=== PATIENT | female | born 1975 | race Caucasian/White ===

== ENCOUNTER 2018-10-17 15:01 | Emergency (ER) | payer BC, SELFPAY ==
[2018-10-17 15:00] VITALS: BP 130/59; PULSE 89
[2018-10-17 15:03] VITALS: BP 130/59; PULSE 89; RESP 12; TEMP 37.2; O2SAT 100
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
[2018-10-17] MEDS: Normal Saline Flush 10 ML SYR IVP ×2 (15:45→17:48)
[2018-10-17] MEDS: Normal Saline 1,000 ML 150 ML IV (15:45)
[2018-10-17 15:57] LABS: Abs Immature Grans 0.02 k/cumm (0.0-0.09); Absolute Basophil Count 0.04 k/cumm (0.0-0.2); Absolute Eosinophil Count 0.36 k/cumm (0.0-0.7); Absolute Lymphocyte Count 1.49 k/cumm (1.2-3.4); Absolute Monocyte Count 0.49 k/cumm (0.11-0.7); Absolute Neutrophil Count 8.12 k/cumm (1.2-6.7); Basophils % 0.4; Eosinophils % 3.4; HGB 13.2 g/dL (12.0-15.5); Immature Grans % 0.2; Lymphocytes % 14.2; Mean Corpuscular Hemoglobin 29.3 pg (27.0-33.0); Mean Corpuscular Volume 88.7 fL (80-95); Mean Platelet Volume 9.2 fL (8.0-11.0); Monocytes % 4.7; Neutrophils % 77.1; Platelet Count 242 x1000/uL (130-400); RBC 4.51 m/cumm (4.00-5.20); RBC Distribution Width 12.9 % (11.7-14.6); White Blood Cell Count 10.52 k/cumm (4.4-10.8)
[2018-10-17] MEDS: Acetaminophen 500 MG TAB (16:10)
[2018-10-17 16:11] LABS: ALT 29 U/L (12-78); AST 36 U/L (15-37); Albumin 3.7 g/dL (3.4-5.0); Alkaline Phosphatase 52 U/L (46-116); Anion Gap 10.5 mmol/L (3-11); BUN 12 mg/dL (7-18); Bilirubin, Total 0.5 mg/dL (0.2-1.0); CO2 25.5 mmol/L (21.0-32.0); CREATININE 0.74 mg/dL (0.55-1.02); Calcium 8.7 mg/dL (8.5-10.1); Chloride 103 mmol/L (98-107); Glucose 125 mg/dL (70-100); Potassium 3.3 mmol/L (3.5-5.1); Sodium 139 mmol/L (136-145); Total Protein 7.2 g/dL (6.4-8.2)
[2018-10-17] MEDS: Omnipaque 350 MG/ML 100 ML BTL IJ (16:33)
--- NOTE | 2018-10-17 16:35 | DI.CT_ITS ---
SYMPTOM/DIAGNOSIS: LEFT SIDED PAIN AFTER FALL, LEFT LOW PELVIS CT SCAN CHEST, ABDOMEN AND PELVIS: CT scan of the chest, abdomen and pelvis was performed following the uneventful administration of intravenous contrast material. There is artifact from the patient's positioning. The arms are on top of the abdomen. There are no priors for comparison CT ABDOMEN AND PELVIS: Portions of the inferior aspect of the liver are obscured by external artifact. No gross hepatic lesion is seen. The portal, superior mesenteric and splenic veins are patent. The gallbladder is negative. There is no biliary ductal dilatation. The pancreas, spleen and adrenal glands are unremarkable as are the kidneys, ureters and bladder. The reproductive organs are grossly unremarkable. Incidental note is made of a 2.3 cm right adnexal cyst likely ovarian in origin. The abdominal aorta is of normal caliber and intact. No significant abdominal or pelvic adenopathy, ascites or pneumoperitoneum is present. There is stool throughout the colon which may represent mild constipation. No acute bowel abnormality is appreciated. The lumbosacral spine is intact. No acute fracture or subluxation is seen. IMPRESSION: No evidence of acute abdominal or pelvic organ injury. CT SCAN OF THE CHEST: No priors. The thoracic aorta is intact. Heart size is within normal limits. No significant pericardial effusion is seen. The central pulmonary arteries are unremarkable. No significant thoracic adenopathy, pleural effusion or pneumothorax is identified. Dependent atelectatic changes are seen in the lung bases. No focal consolidating infiltrates are seen. The tracheobronchial tree is unremarkable. No acute fracture is identified. IMPRESSION: No acute abnormality.
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
[2018-10-17 16:55] VITALS: BP 110/53; PULSE 82
[2018-10-17] MEDS: Ketorolac 30 MG/ML VIAL IVP (17:00)
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
--- NOTE | 2018-10-17 17:03 | DI.VRAD_ITS ---
EXAM: XR Left Forearm EXAM DATE/TIME: 10/17/2018 3:36 PM CLINICAL HISTORY: 43 years old, female; Lower or forearm; Patient HX: Left forearm pain, area of pain left elbow, per er doctor limited 1 view forearm. TECHNIQUE: Imaging protocol: XR Left forearm. Views: 2 views. COMPARISON: No relevant prior studies available. FINDINGS: Bones/joints: Normal. Soft tissues: Normal. IMPRESSION: No acute findings. Dictated and Authenticated by: Antonia Em MD. Ordering:ARMAND Paulino MD
[2018-10-17 17:04] VITALS: BP 110/53; PULSE 83; O2SAT 100
--- NOTE | 2018-10-17 17:29 | DI.VRAD_ITS ---
EXAM: XR Left Humerus EXAM DATE/TIME: 10/17/2018 3:36 PM CLINICAL HISTORY: 43 years old, female; Pain; Upper arm; Left TECHNIQUE: Imaging protocol: XR Left humerus Views: 2 or more views. COMPARISON: CR XR FOREARM LT 10/17/2018 4:42 PM FINDINGS: Bones/joints: Normal. Soft tissues: Normal. IMPRESSION: No acute findings. Dictated and Authenticated by: Farhad Lauren MD. Ordering:ARMAND Paulino MD
[2018-10-17] MEDS: HYDROmorphone 2 MG/ML VIAL 0.5 MG IVP (17:46)
[2018-10-17] MEDS: Bacitracin 1 PACKET (17:51)
[2018-10-17] MEDS: HYDROcodone 5/Acetaminophen 325 TAB PO (18:03)
[2018-10-17 18:30] VITALS: BP 112/54; PULSE 79; RESP 14; O2SAT 100
--- NOTE | 2018-10-17 18:30 | DI.CT_ITS ---
SYMPTOMS/DIAGNOSIS: RECONS OF LT ELBOW: CT SCAN OF THE LEFT ELBOW: Left elbow images were obtained with reconstructions from the patient's prior CT scan of the chest, abdomen and pelvis. Sagittal and coronal reconstructed images were performed. There is acute minimally displaced fracture involving the neck of the left radius. There is a hemarthrosis present. IMPRESSION: Minimally displaced radial neck fracture.
--- NOTE | 2018-10-18 11:20 | NUR.NOTE ---
Nursing Note: For referral to [facility] the MD note and all diagnostic imaging reports were faxed to that office. The images for everything done was also sent via [employer]. Sharon Sutherland [phone] F [phone]
== END 2018-10-17 18:29 | disposition home or self-care (01) ==
PROVIDERS: Emergency Provider Emergency Medicine
DX: S52.122A Displaced fracture of head of left radius, initial encounter for closed fracture (principal); S50.812A Abrasion of left forearm, initial encounter; S80.812A Abrasion, left lower leg, initial encounter; S30.811A Abrasion of abdominal wall, initial encounter; V17.0XXA Pedal cycle driver injured in collision with fixed or stationary object in nontraffic accident, initial encounter
CPT/HCPCS: 36415; 74177; 80053; 96361; 96374; 96375; 99285; 70450; 71260; 72125; 73060; 73090; 73200; 85025; 99284; J1885; J3490; L3650